=== PATIENT | female | born 1980 | race Caucasian/White ===

== ENCOUNTER 2017-09-23 00:53 | Emergency (ER) | payer BC ==
[~2017-09-23] VITALS: Ht 185.4 cm; Wt 134.7 kg
[2017-09-23] MEDS ORDERED: LISINOPRIL10 MG PO (01:09)
[2017-09-23] MEDS ORDERED: SERTRALINE 50MG50 MG PO (01:09)
[2017-09-23] MEDS ORDERED: VITAMIN E 400400 IU PO (01:10)
[2017-09-23] MEDS ORDERED: METFORMIN1000 MG PO (01:10)
[2017-09-23] MEDS ORDERED: FAMOTIDINE 20MG20 MG PO (01:11)
[2017-09-23] MEDS ORDERED: JARDIANCE25 MG PO (01:11)
[2017-09-23] MEDS ORDERED: SIMETHICONE80 MG PO (01:12)
[2017-09-23] MEDS ORDERED: MUCUS RELIEF C PO (01:13)
[2017-09-23] MEDS ORDERED: FLUTICASONE 50M16 GM (01:14)
[2017-09-23] MEDS ORDERED: LORATADINE 10MG10 M1 PO (01:14)
--- OUTSIDE RECORDS SUMMARY | 2017-09-23 01:14 | External Medical Summary Rpt | CCD ---
Author Author [employer] Organization [employer] Address Unknown Phone Unavailable Purpose Continuity of Care Document - through 2016
--- OUTSIDE RECORDS SUMMARY | 2017-09-23 01:14 | External Medical Summary Rpt | CCD ---
Author Author , SIMIN DUVAL Address Unknown Phone Purpose Continuity of Care Document - 07-27-2017 through 2016 Problems Code Diagnosis DOS Provider Status E11.65 TYPE 2 07-27-2017 DIABETES MELLITUS WITH HYPERGLYCEM IA
[2017-09-23] MEDS ORDERED: TRESIBA FL100 UNIT/1 SQ (01:15)
--- OUTSIDE RECORDS SUMMARY | 2017-09-23 01:15 | External Medical Summary Rpt ---
Author Author SIMIN Martinez, [employer] Organization [employer] Address Unknown Phone Unavailable
--- OUTSIDE RECORDS SUMMARY | 2017-09-23 01:15 | External Medical Summary Rpt | CCD ---
Demographics Preferred Language Welsh Marital Status Unknown Restorationist Affiliation Unknown Race Unknown Ethnic Group Unknown Author Author , SIMIN DUVAL Address Unknown Phone Immunization Unable to retrieve immunization data due to connection failure with Immunization Registry. Please try again later.
--- OUTSIDE RECORDS SUMMARY | 2017-09-23 01:15 | External Medical Summary Rpt | CCD ---
Demographics Preferred Language Azeri Marital Status Unknown Baptism Affiliation Unknown Race Unknown Ethnic Group Unknown Author Author , SIMIN DUVAL Address Unknown Phone Immunization Unable to retrieve immunization data due to connection failure with Immunization Registry. Please try again later.
[2017-09-23] MEDS ORDERED: TRULICITY1.5 MG/0.5 SC (01:18)
--- NOTE | 2017-09-23 01:50 | Emergency Room Report ---
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 N Clinical Suspician of Infection? Y Mental Status: 1 - Regular (Normal Baseline) Sepsis Risk:Possible Sepsis Risk Have you (or family members/close friends) recently traveled outside the [place]? N If Yes, where/when: Have you had exposure to infectious disease within the past month? N TB? Other? Specify: Comment The patient states that she has been sick for almost a week. She has a nonproductive, severe cough. She has not taken her temperature, no documented fever. Her throat is hoarse from coughing. She denies rhinorrhea or earache. She is also beginning to have some aching of her abdominal muscles from the excessive coughing. She has tried numerous xuic-kqt-jtrsrff cough medications and cold medications without improvement. She is now feeling very congested and tight in her chest, hard to get a deep breath, she is uncertain if she has been wheezing. She is afraid that she might have pneumonia. She has had pneumonia once in the past. She requests "a neb and a shot to break it up". She works at [employer] office in [place]. ALLERGIES Coded Allergies: acetaminophen (From PERCOCET) (Severe, SHORTNESS OF BREATH 04/27/16) oxycodone (From PERCOCET) (Severe, SHORTNESS OF BREATH 04/27/16) Home Medications Reported Medications Sertraline Hcl (Sertraline 50MG) 25 MG PO DAILY Lisinopril 10 MG PO DAILY METFORMIN HCL (Metformin) 1,000 MG PO BID Vitamin E (Vitamin E 400 UNITS) 400 IUNITS PO DAILY Empagliflozin (Jardiance) 25 MG PO DAILY Famotidine (Famotidine 20MG) 20 MG PO DAILY SIMETHICONE (Simethicone 80MG) 125 MG PO Q6HP PRN GAS RELIEF Guaifen/Phenyleph/Acetaminophn (Mucus Relief Cold & Sinus Cplt) 1 EACH PO Q4HP PRN COUGH Loratadine (Loratadine 10MG Tablet) 10 MG PO DAILY FLUTICASONE PROPIONATE (Fluticasone 50MCG Nasal [place]) 2 SPRAY NA PRN PRN ALLERGIES Insulin Degludec (Tresiba Flextouch U-100) 128 UNIT SQ QHS Dulaglutide (Trulicity) 1.5 MG SC WEEKLY History Medical History General CAD? No Angina: No [place]: No Hypertension? No Hyperlipidemia? No CHF? No DVT? No PE? No COPD? No Asthma? No Anemia? No GERD? No Gastric ulcers? No GI Bleed? No Hernia? No Thyroid Problems? No Hypothyroidism? No CVA? No Seizures? No Diabetes? Yes Insulin Dependent: Yes Insulin Pump: No Home FSBS? No Renal Insuffiency? No End Stage Renal Disease? No UTI? No Stones? No BPH? No GB Disease: No Nephritic Syndrome? No Asplenia? No Hepatitis? No Sickle Cell Disease? No Arthritis? No Migraines? No Cataracts? No Glaucoma? No MRSA? No HIV? No TB? No Anxiety? No Depression? No Cancer? No More? 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 Respiratory cough, shortness of breath Gastrointestinal denies vomiting Physical Exam Vital Signs Vital Signs Date Time Temp Pulse Resp B/P Pulse O2 O2 Flow FiO2 Ox Delivery Rate 09/23 0247 88 20 128/64 98 09/23 0245 88 20 128/64 98 09/23 0100 97.6 92 20 137/73 98 General Appearance no apparent distress Eye Exam - bilateral eye normal exam, bilateral eye PERRL, bilateral eye EOMI Ear, Nose, Throat normal pharynx, TMs normal, hoarse voice. Neck normal inspection, non-tender, supple, full range of motion Respiratory Status Yes: trachea midline, chest symmetrical, non productive cough (frequent). No: respiratory distress. Lung Sounds bilateral: normal breath sounds, lungs clear. Cardiovascular normal exam, regular rate/rhythm, no peripheral edema, no gallop, no JVD, no murmur, no rub, normal peripheral pulses Peripheral Pulses Pulses normal Yes Gastrointestinal normal bowel sounds, normal exam, non tender, soft, no organomegaly Extremities non-tender, normal range of motion, normal inspection Neurologic alert, inclusion teacher II-XII nml as tested, normal exam, oriented x 3 Mental status normal mood/affect Skin intact, normal color, warm/dry Lymphatic no adenopathy Medical Decision Making LABS/Meds/Orders Pt receiving controlled substance in ED? No Results/Orders Current Medication Orders Sig/Mark Start time Last Medication Dose Route Stop Time Status Admin Albuterol 0 .STK-MED ONE 09/235 DC IH Miscellaneous 0 .STK-MED ONE 09/23 0235 DC XX Albuterol 2 PUFFS ONCE ONE 09/23 0230 DC 09/23 IH 09/23 0231 0230 Ceftriaxone Sodium 1 GM ONCE ONE 09/23 0230 DC 09/23 IM 09/23 0231 0230 Lidocaine HCl 0 ONCE ONE 09/23 0230 DC 09/23 IM 09/23 0231 0230 Miscellaneous 1 UNIT ONCE ONE 09/23 0230 DC 09/23 XX 09/23 0231 0230 Nitroglycerin 1 IN ONCE ONE 09/23 0230 CAN TP 09/23 0231 Lidocaine HCl 0 .STK-MED ONE 09/23 0226 DC .ROUTE Ceftriaxone Sodium 0 .STK-MED ONE 09/23 0223 DC .ROUTE Albuterol/Ipratropium 3 ML ONCE ONE 09/23 0200 DC 09/23 INH 09/23 020 0202 Albuterol/Ipratropium 0 .STK-MED ONE 09/23 0158 DC INH Orders Procedure Date/time Status RT Metered Dose Inhaler, INITI 09/23 0354 Active RT REQUEST ALBUTEROL INHALER 09/23 0218 Active RT REQUEST DUONEB 09/23 014 Active CHEST(2 VIEWS-NOT PORTABLE) 09/23 147 Active XRAY/CT/US XRAY/CT/US XRAY chest Comment X-ray interpreted by Jarvis Ingram M.D.: Patchy RIGHT upper lobe infiltrate Departure Departure Disposition DC Home or Self Care(routine) Clinical Impression Primary Impression: CAP (community acquired pneumonia) Qualifiers: Laterality: right Lung location: upper lobe of lung Qualified Code: J18.1 - Lobar pneumonia, unspecified organism Condition STABLE Patient Instructions DI for Pneumonia -- Adult Additional Instructions Additional instructions for PNEUMONIA: See your physician as soon as possible for further evaluation. Return immediately if you have an uncontrollable fever greater than 102 degrees, worsening difficulty breathing or shortness of breath, persistent vomiting, or severe chest pain. Prescriptions Current Visit Scripts Levofloxacin (Levaquin 750MG Tab) 750 MG PO DAILY #5 TAB ED Critical Care Critical Care No at 0801
--- NOTE | 2017-09-23 01:50 | Emergency Room Report ---
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 N Clinical Suspician of Infection? Y Mental Status: 1 - Regular (Normal Baseline) Sepsis Risk:Possible Sepsis Risk Have you (or family members/close friends) recently traveled outside the [place]? N If Yes, where/when: Have you had exposure to infectious disease within the past month? N TB? Other? Specify: Comment The patient states that she has been sick for almost a week. She has a nonproductive, severe cough. She has not taken her temperature, no documented fever. Her throat is hoarse from coughing. She denies rhinorrhea or earache. She is also beginning to have some aching of her abdominal muscles from the excessive coughing. She has tried numerous xedj-mdz-yflfliu cough medications and cold medications without improvement. She is now feeling very congested and tight in her chest, hard to get a deep breath, she is uncertain if she has been wheezing. She is afraid that she might have pneumonia. She has had pneumonia once in the past. She requests "a neb and a shot to break it up". 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 ALLERGIES Coded Allergies: acetaminophen (From PERCOCET) (Severe, SHORTNESS OF BREATH 04/27/16) oxycodone (From PERCOCET) (Severe, SHORTNESS OF BREATH 04/27/16) Home Medications Reported Medications Sertraline Hcl (Sertraline 50MG) 25 MG PO DAILY Lisinopril 10 MG PO DAILY METFORMIN HCL (Metformin) 1,000 MG PO BID Vitamin E (Vitamin E 400 UNITS) 400 IUNITS PO DAILY Empagliflozin (Jardiance) 25 MG PO DAILY Famotidine (Famotidine 20MG) 20 MG PO DAILY SIMETHICONE (Simethicone 80MG) 125 MG PO Q6HP PRN GAS RELIEF Guaifen/Phenyleph/Acetaminophn (Mucus Relief Cold & Sinus Cplt) 1 EACH PO Q4HP PRN COUGH Loratadine (Loratadine 10MG Tablet) 10 MG PO DAILY FLUTICASONE PROPIONATE (Fluticasone 50MCG Nasal [place]) 2 SPRAY NA PRN PRN ALLERGIES Insulin Degludec (Tresiba Flextouch U-100) 128 UNIT SQ QHS Dulaglutide (Trulicity) 1.5 MG SC WEEKLY History Medical History General CAD? No Angina: No [place]: No Hypertension? No Hyperlipidemia? No CHF? No DVT? No PE? No COPD? No Asthma? No Anemia? No GERD? No Gastric ulcers? No GI Bleed? No Hernia? No Thyroid Problems? No Hypothyroidism? No CVA? No Seizures? No Diabetes? Yes Insulin Dependent: Yes Insulin Pump: No Home FSBS? No Renal Insuffiency? No End Stage Renal Disease? No UTI? No Stones? No BPH? No GB Disease: No Nephritic Syndrome? No Asplenia? No Hepatitis? No Sickle Cell Disease? No Arthritis? No Migraines? No Cataracts? No Glaucoma? No MRSA? No HIV? No TB? No Anxiety? No Depression? No Cancer? No More? 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 Respiratory cough, shortness of breath Gastrointestinal denies vomiting Physical Exam Vital Signs Vital Signs Date Time Temp Pulse Resp B/P Pulse O2 O2 Flow FiO2 Ox Delivery Rate 09/23 0247 88 20 128/64 98 09/23 0245 88 20 128/64 98 09/23 0100 97.6 92 20 137/73 98 General Appearance no apparent distress Eye Exam - bilateral eye normal exam, bilateral eye PERRL, bilateral eye EOMI Ear, Nose, Throat normal pharynx, TMs normal, hoarse voice. Neck normal inspection, non-tender, supple, full range of motion Respiratory Status Yes: trachea midline, chest symmetrical, non productive cough (frequent). No: respiratory distress. Lung Sounds bilateral: normal breath sounds, lungs clear. Cardiovascular normal exam, regular rate/rhythm, no peripheral edema, no gallop, no JVD, no murmur, no rub, normal peripheral pulses Peripheral Pulses Pulses normal Yes Gastrointestinal normal bowel sounds, normal exam, non tender, soft, no organomegaly Extremities non-tender, normal range of motion, normal inspection Neurologic alert, molded candles wicker II-XII nml as tested, normal exam, oriented x 3 Mental status normal mood/affect Skin intact, normal color, warm/dry Lymphatic no adenopathy Medical Decision Making LABS/Meds/Orders Pt receiving controlled substance in ED? No Results/Orders Current Medication Orders Sig/Mark Start time Last Medication Dose Route Stop Time Status Admin Albuterol 0 .STK-MED ONE 09/235 DC IH Miscellaneous 0 .STK-MED ONE 09/23 0235 DC XX Albuterol 2 PUFFS ONCE ONE 09/23 0230 DC 09/23 IH 09/23 0231 0230 Ceftriaxone Sodium 1 GM ONCE ONE 09/23 0230 DC 09/23 IM 09/23 0231 0230 Lidocaine HCl 0 ONCE ONE 09/23 0230 DC 09/23 IM 09/23 0231 0230 Miscellaneous 1 UNIT ONCE ONE 09/23 0230 DC 09/23 XX 09/23 0231 0230 Nitroglycerin 1 IN ONCE ONE 09/23 0230 CAN TP 09/23 0231 Lidocaine HCl 0 .STK-MED ONE 09/23 0226 DC .ROUTE Ceftriaxone Sodium 0 .STK-MED ONE 09/23 0223 DC .ROUTE Albuterol/Ipratropium 3 ML ONCE ONE 09/23 0200 DC 09/23 INH 09/23 020 0202 Albuterol/Ipratropium 0 .STK-MED ONE 09/23 0158 DC INH Orders Procedure Date/time Status RT Metered Dose Inhaler, INITI 09/23 0354 Active RT REQUEST ALBUTEROL INHALER 09/23 0218 Active RT REQUEST DUONEB 09/23 014 Active CHEST(2 VIEWS-NOT PORTABLE) 09/23 147 Active XRAY/CT/US XRAY/CT/US XRAY chest Comment X-ray interpreted by Jarvis Ingram M.D.: Patchy RIGHT upper lobe infiltrate Departure Departure Disposition DC Home or Self Care(routine) Clinical Impression Primary Impression: CAP (community acquired pneumonia) Qualifiers: Laterality: right Lung location: upper lobe of lung Qualified Code: J18.1 - Lobar pneumonia, unspecified organism Condition STABLE Patient Instructions DI for Pneumonia -- Adult Additional Instructions Additional instructions for PNEUMONIA: See your physician as soon as possible for further evaluation. Return immediately if you have an uncontrollable fever greater than 102 degrees, worsening difficulty breathing or shortness of breath, persistent vomiting, or severe chest pain. Prescriptions Current Visit Scripts Levofloxacin (Levaquin 750MG Tab) 750 MG PO DAILY #5 TAB ED Critical Care Critical Care No at 0801
[2017-09-23] MEDS ORDERED: LEVAQUIN750 MG PO (02:20)
[2017-09-23 02:47] VITALS: BP 128/64
--- NOTE | 2017-09-23 08:23 | RADIOLOGY REPORT PS360 ---
CHEST(2 VIEWS-NOT PORTABLE) COMPARISON: PA and lateral chest 03/21/2016 HISTORY: Cough, shortness of breath TECHNIQUE: PA and lateral chest FINDINGS: The lung [place] are well expanded. The patchy ill-defined pneumonic infiltrate in the right upper lobe primarily anterior segment. There may be some minimal involvement of the right lower lobe as well. The left lung field is clear. Cardiac size is normal and the vascularity is normal. IMPRESSION: Right upper lobe bronchopneumonia question minimal right lower lobe involvement.
== END 2017-09-23 02:53 | disposition home or self-care (01) ==
LOC: ER 00:53
DX: J18.1 Lobar pneumonia, unspecified organism (principal); Z87.891 Personal history of nicotine dependence; E11.9 Type 2 diabetes mellitus without complications; Z79.4 Long term (current) use of insulin